=== PATIENT | female | born 1940 | race Caucasian/White ===

== ENCOUNTER → 2016-12-30 | Outpatient (CLI) | payer MEDICARE ==
[~2016-12-30] MED LIST: AMAR4TAB PO; ASPI81 PO; ATOR40TA PO; BUME1TAB PO; CLOP75 PO; ISOS30TA3 PO; KLOR20TA6 PO; LOSA25TA31 PO; MELA5CAP2 PO; METO50TA PO
[2016-12-30 11:19] LABS: BLOOD GAS BASE EXCESS -0.6 mmol/L (-2-2); BLOOD GAS CARBOXYHEMOGLOBIN 1.7 % (0-4); BLOOD GAS HCO3 24 mmol/L (22-26); BLOOD GAS METHEMOGLOBIN 0.8 % (0-2); BLOOD GAS O2 HGB SATURATION 94 % (90-100); BLOOD GAS OXYGEN CONTENT 16.9 Vol % (12.0-20.0); BLOOD GAS PCO2 41 mmHg (38-42); BLOOD GAS PO2 85 mmHg (61-120); BLOOD GAS TOTAL HGB 12.8 G/DL (12.0-16.0); CRITICAL VALUE NO; TEMP CORR TO 98.6
[2016-12-30 11:20] LABS: DRAW SITE RT RADIAL; FIO2 21 %; NUMBER OF ARTERIAL PUNCTURES 1; STAT NO; ULNAR PULSE PRESENT
--- NOTE | 2017-01-02 10:52 | RSPPFT ---
DATE OF PROCEDURE: 12/30/16 COMMENTS: Spirometry shows FVC of 1.7 at 66% of predicted, FEV1 of 1.2 at 67%, FEV1/FVC ratio is decreased. Flow is decreased at FEF 25, FEF 50 and FEF 25-75. There is a good response after bronchodilator treatment. Lung volumes show residual volume is increased. TLC is normal. Diffusion capacity is mildly decreased. Flow volume loop indicates an obstructive pattern. Room air arterial blood gases show pH of 7.38, PCO2 of 41, PO2 of 85, BiCarb of 24 and O2 Saturation at 94%. IMPRESSION: 1. Mild obstructive lung disease. 2. Good response after bronchodilator treatment. 3. Lung volumes show hyperinflation. 4. Mild decrease in diffusion capacity. 5. Blood gases show normal oxygenation. 6. No significant de-saturation after 6-minute walk test.
== END ==
LOC: HRSP 09:21
PROVIDERS: ATTEND Specialist
DX: R06.00 Dyspnea, unspecified (principal); I27.0 Primary pulmonary hypertension
CPT/HCPCS: 36600; 82805; 94060; 94620; 94726; 94729

== ENCOUNTER 2017-10-16 06:04 | Day surgery (SDC) | payer MEDICARE ==
[~2017-10-16] VITALS: Ht 160 cm; Wt 90.4 kg
[2017-10-16] MEDS ORDERED: IOHEXOL 350 MG/ML 50 ML BTL (for Cath Lab) OTHER ONE (06:05)
[2017-10-16] MEDS ORDERED: NS 1000P @30 MLS/HR (KVO) IV SCH (06:45)
[2017-10-16] MEDS ORDERED: LOSA25TA PO (06:59)
[2017-10-16] MEDS ORDERED: GLIM4TAB PO (06:59)
[2017-10-16] MEDS ORDERED: MECL-62 PO (06:59)
[2017-10-16] MEDS ORDERED: CHOL10008 (06:59)
[2017-10-16] MEDS ORDERED: FLAX10002 (06:59)
[2017-10-16] MEDS ORDERED: OMEGCAP PO (06:59)
[2017-10-16] MEDS ORDERED: VITATAB11 (06:59)
[2017-10-16] MEDS ORDERED: ASPI81CH6 CHEW (06:59)
[2017-10-16] MEDS ORDERED: ISOS30TA3 PO (06:59)
[2017-10-16] MEDS ORDERED: BAYETES (06:59)
[2017-10-16] MEDS ORDERED: LACTCAP8 PO (06:59)
[2017-10-16] MEDS ORDERED: NITR1SUB3 SL (06:59)
[2017-10-16] MEDS ORDERED: POTA-163 PO (06:59)
[2017-10-16] MEDS ORDERED: ATOR40TA16 PO (06:59)
[2017-10-16] MEDS ORDERED: METO100T PO (06:59)
[2017-10-16] MEDS ORDERED: BUME1TAB PO (06:59)
[2017-10-16] MEDS ORDERED: COEN400C (06:59)
[2017-10-16] MEDS ORDERED: COCO1000 (06:59)
[2017-10-16 07:02] VITALS: BP 146/70; PULSE 95; RESP 16; TEMP 98.1; O2SAT 98
[2017-10-16] MEDS ORDERED: HEPARIN SODIUM - IV 10,000 UNITS/10 ML VIAL ONE (08:11)
[2017-10-16] MEDS ORDERED: MIDAZOLAM HCL 2 MG/2 ML VIAL ONE (08:30)
--- NOTE | 2017-10-16 08:51 | CATHPROC ---
[facility] HIS Report Study Information Study Number Admission Scheduled Start Study Start [id number] Oct 16 2017 6:04AM 10/16/2017 Oct 16 2017 8:05AM [place] Service Cardiac Catheterization Admit Source Facility Department Other [facility] - Sausage Mixer Physician and Clinical Staff Initial MD Killian, Williams Sales Representative Groceries Pérez RN, Michael Recorder Lakeshia Carrero,RT(R) Scrub Lan Perkins,SASH INSTALLER(BS) X-Ray Rosa Valle ,RT(R) Procedures Performed Procedure Location (Site) Vessel Name Coronary Angiograms LCA Left Coronary Coronary Angiograms RCA Right Coronary Coronary Angiograms JONAS-LAD Left Coronary Coronary Angiograms SVG-DIAG Left Coronary Coronary Angiograms SVG-OM CIRC Coronary Angiograms Gft. Stump 1 SVG Graft L Heart Cath Wire insertion Fem Art (right) Femoral Art Equipment Time Sequencing Machine Operator Description Size Mfg Part Number Used/Scraped TRANSDUCER, TRUWAVE [id number] 08:32 STOCKTON GARNICA * Used W/STOCKCOCK *[id number] *[id number] *[id number] 08:40 DAIG/ST. JOLENE MEDICAL ANGIOSEAL, FR6 VIP FR 6 Used *[id number] 08:32 MEDLINE INDUSTRIES PACK, CCL CUSTOM * Used *[id number] 08:32 Ropatec PACER PEN, SKIN DUAL W/ RULER * Used *[id number] 08:32 Scandit MEDICAL SHEATH, FR6.5 PRELUDE 11CM FR 6.5 038ACT Used *[id number] 08:32 Scandit MEDICAL WIRE, 3MMJ .035 180CM 180CM Used *[id number] 08:32 NAMIC MANIFOLD, 4 PORT * Used *[id number] 08:32 NYCOMED OMNIPAQUE, 350 MG, 100ML 100ML [id number] Used [id number] 08:32 [employer] MEDICAL BLANKET,WARM AIR CCL * Used *[id number] History: Current Medications Medication Dosage/Unit Route Frequency Last Date/Time Taken ASA Beta Carlos Statins (any) Imdur History: Allergies Allergy Reaction potassium iodide sodium iodide iodine povidone-iodine shellfish derived puritis History: Risk Factors Family History of Hypertension Dyslipidemia Previous [place] Previous Heart Failure Premature CAD Yes Yes No Yes No Prior Valve Prior PCI Prior PCIDate Prior CABG Prior CABGDate Surgery No Yes 09/05/2014 Yes 09/04/2000 Cerebrovascular 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 Diabetes Diabetes Therapy Disease Disease Disease No No No No Yes Oral History: Stress Tests Stress or Imaging Studies Performed No History: Other Current Smoker No Labs Glucose (mg/dl) Creatinine (mg/dl) 74.00-106.00 0.50-1.30 185 1.3 Na (meq/l) K (meq/l) 136.00-145.00 3.50-5.10 141 5 PT (sec) INR (PTT:PT) 9.80-11.60 0.90-1.10 11 1 CPK-MB (ng/ML) 0.50-3.60 Not Drawn Medication Medication Total Dose (Bolus/Oral) Medication Total Dosage/Unit 1% XYLOCAINE 20 mL VERSED 2 mg Medications (Bolus/Oral) Medication Time Given Dosage/Unit Administered By Reason 1% XYLOCAINE 10/16/2017 8:28:19 AM 20 mL Williams Killian 20 mL 1% XYLOCAINE given in lab by Williams Killian in Right Groin via Subcutaneous. VERSED 10/16/2017 8:30:33 AM 2 mg Michael Ortez RN 2 mg VERSED given in lab by Michael Ortez RN via Peripheral IV. Medication (Drip) Medication Time Given Dosage/Unit Concentration/Unit Diluent (ml) Solution IV Solutions 10/16/2017 8:11:43 AM 0 mL (IV) 500 NaCl .9 Patient arrived on IV Solutions in Left Antecubital via Peripheral IV. Pump/Drip Flow = 20 ml/hr usin g NaCl .9. kvo Initial Case Assessment Cardiovascular HR Rhythm NIBP Chest Pain 62 reg 165/88 0 Edema Present Skin color Skin None Normal Warm Circulatory - Right Pulses Dorsalis Pedis Femoral 3 3 Scale (0,1,2,3,4,d) Circulatory - Left Pulses Dorsalis Pedis Femoral 3 3 Scale (0,1,2,3,4,d) Circulatory - Lower Extremities Color Lower Right Color Lower Left Normal Normal Neurological State Oriented to time-place- Alert Moves all extremities person Respiration - General Respiration Rate SpO2 (%) (B/min) 20 95 Final Case Assessment Cardiovascular HR Rhythm NIBP 50 reg 144/79 Edema Present Skin color Skin None Normal Warm Circulatory - Right Pulses Dorsalis Pedis Femoral 2 2 Scale (0,1,2,3,4,d) Circulatory - Left Pulses Dorsalis Pedis Femoral 2 2 Scale (0,1,2,3,4,d) Circulatory - Lower Extremities Color Lower Right Color Lower Left Normal Normal Neurological State Oriented to time-place- Alert Moves all extremities person Respiration - General Respiration Rate SpO2 (%) (B/min) 19 97 Chronological Log Time Study Chronological Log 8:05:40 Patient arrived via Bed. 8:05:41 Patient Name, D.O.B, / Armband Verified By R.N. 8:05:42 Consent signed by the physician and the patient and verified by the Sausage [employer] staff. 8:05:45 Pre-op and post- op instructions given; patient acknowledges understanding of instructions. 8:05:46 Verbal Stimulation=2 Physical Stimulation=2 Airway=2 Respiration=2 TOTAL=8. (0=absent, 1=li mited, 2=present) 8:08:49 Patient has been NPO for More than 6Hrs. 8:08:51 Skin Breakdown-none Vitals capture started with the following parameters, Patient=Adult, Interval=5 min, Initial Pr jqncel=672 mmHg, 8:09:33 Deflation Rate=5 mmHg, Cuff placed on Left Arm Vitals capture started with the following parameters, Patient=Adult, Interval=5 min, Initial Pr sywvxm=369 mmHg, 8:11:04 Deflation Rate=5 mmHg, Cuff placed on Left Arm 8:11:37 A # 20 IV was noted in the Antecubital (left). Grade = 0 8:11:43 Patient arrived on IV Solutions in Left Antecubital via Peripheral IV. Pump/Drip Flow = 20 ml/hr using NaCl .9. kvo 8:12:12 History and physical on the chart or being dictated. Assessment: Initial Case, HR=62 BPM, Rhythm=reg, WTOX=268/88 mmhg, Chest Pain=0, Edema=None, Col or=Normal, Skin = Warm Right Pulses: Jacob Ped=3, Femoral=3 Left Pulses: Jacob Ped=3, Femoral=3 8:12:15 Lower Right Extremities: Color=Normal Lower Left Extremities: Color=Normal Neurological: State=Alert, Ox3, PARADA Respiration: Resp=20 B/min, SpO2=95 % 8:12:19 HR=57 bpm, HKIQ=164/88 mmhg, SpO2=95.0 %, Resp=13 B/min, Pain=0, Antoni=10, Randle=2 8:13:33 Bilateral groins prepped with 2% chlorhexidine, and draped after a 3 minute waiting time. 8:13:39 Reference ECG taken 8:13:44 MD paged 8:17:36 HR=59 bpm, FBVQ=220/82 mmhg, SpO2=93.0 %, Resp=31 B/min, Pain=0, Antoni=10, Randle=2 8:20:05 Pressure channel 1 zeroed. 8:20:20 MD arrived. 8:21:48 HR=48 bpm, NFXN=466/75 mmhg, SpO2=94 %, Resp=17 B/min, Pain=0, Antoni=10, Randle=2 8:26:51 HR=55 bpm, RHTZ=773/71 mmhg, SpO2=91.0 %, Resp=19 B/min, Pain=0, Antoni=10, Randle=2 Time Out. Correct patient, correct procedure, correct physician, power injector not loaded with contrast with surgical 8:27:56 team present. Time Out Concurred by MD and individual staff in procedure. 8:28:06 Case Start 8:28:08 Verbal Stimulation=2 Physical Stimulation=2 Airway=2 Respiration=2 TOTAL=8. (0=absent, 1=mack ited, 2=present) 8:28:19 20 mL 1% XYLOCAINE given in lab by Williams Killian in Right Groin via Subcutaneous. 8:30:33 2 mg VERSED given in lab by Michael Ortez RN via Peripheral IV. 8:31:42 Access site was Right Femoral Artery. 8:31:48 A wire was inserted via Fem Art (right). 8:31:50 HR=52 bpm, JSGM=522/79 mmhg, SpO2=91.0 %, Resp=19 B/min, Pain=0, Antoni=10, Randle=2 8:31:50 A SHEATH, FR6.5 PRELUDE 11CM FR 6.5 was advanced into the Fem Art (right) using the Percutan eous technique. A JL 4.0 GUIDE CATHETER FR 6 was advanced over a wire. OMNIPAQUE, 350 MG, 100ML 100ML was used f or 8:33:02 injections. Recorded Pressure: Ao, HR=57, Condition=Condition 1 8:33:45 (Aorta) Ao 140/57/87 8:34:26 The LCA was injected and visualized at various angles. OMNIPAQUE, 350 MG, 100ML 100ML used. After removing the current catheter a JR 4.0 GUIDE CATHETER FR 6 was advanced over a WIRE, 3MMJ .035 180CM 8:35:39 180CM. 8:36:06 The RCA was injected and visualized at various angles. OMNIPAQUE, 350 MG, 100ML 100ML used. 8:36:21 The SVG-OM was injected and visualized at various angles. OMNIPAQUE, 350 MG, 100ML 100ML use d. 8:36:47 HR=52 bpm, EXOG=016/79 mmhg, SpO2=97.0 %, Resp=18 B/min, Pain=0, Antoni=10, Randle=2 8:37:09 The SVG-DIAG was injected and visualized at various angles. OMNIPAQUE, 350 MG, 100ML 100ML u sed. 8:37:58 The Gft. Stump 1 was injected and visualized at various angles. OMNIPAQUE, 350 MG, 100ML 100 ML used. 8:38:46 The JONAS-LAD was injected and visualized at various angles. OMNIPAQUE, 350 MG, 100ML 100ML u sed. 8:39:31 An injection in the Fem Art (right) was made through the SHEATH, FR6.5 PRELUDE 11CM FR 6.5. Assessment: Final Case, HR=50 BPM, Rhythm=reg, DKPY=144/79 mmhg, Edema=None, Color=Normal, Skin = Warm Right Pulses: Jacob Ped=2, Femoral=2 Left Pulses: Jacob Ped=2, Femoral=2 8:39:42 Lower Right Extremities: Color=Normal Lower Left Extremities: Color=Normal Neurological: State=Alert, Ox3, PARADA Respiration: Resp=19 B/min, SpO2=97 % 8:40:15 Catheter(s) removed without difficulty 8:40:18 ANGIOSEAL, FR6 VIP FR 6 placement in the Fem Art (right) 8:40:51 Sterile dressing applied to site 8:40:53 No case complications noted. 8:40:54 Cine recording checked. 8:40:55 Bedside Report will be given. 8:41:00 Contrast Scanned 8:41:03 Verbal Stimulation=2 Physical Stimulation=2 Airway=2 Respiration=2 TOTAL=8. (0=absent, 1=l imited, 2=present) 8:41:17 A Left Heart Cath was performed. 8:41:19 Clinical correlaton risk stratification. 8:41:46 HR=51 bpm, LKRN=121/79 mmhg, SpO2=97.0 %, Resp=21 B/min, Pain=0, Antoni=10, Randle=2 8:41:56 Case End 8:46:18 Patient moved to stretcher 8:46:45 HR=45 bpm, TJIB=428/71 mmhg, SpO2=98.0 %, Resp=11 B/min, Pain=0, Antoni=10, Randle=2 8:48:55 Vitals capture stopped. 8:49:11 Sterile dressing applied to site 8:49:12 No case complications noted. 8:49:21 A Left Heart Cath was performed. End Study - Contrast Media Used In Study Contrast Total Opened (mL) Total Used (mL) Total Wasted (mL) Omnipaque 40 40 0 End Study - Maximum Contrast Load Max Contrast Load (mL) 347.7 End Study - Radiation Exposure Fluoro Time (minutes) 1.8 End Study - Sheaths Sheaths Pulled By Sheath Hold Time (min) Williams Killian End Study - Patient Disposition Complications Transferred To No Outpatient Bed
[2017-10-16] MEDS ORDERED: MISC INFORMATION XX ONE (09:00)
--- NOTE | 2017-10-16 09:38 | MA ---
cc: WILLIAMS KILLIAN MD DATE: 10/16/2017 PROCEDURE The patient was prepped and draped in the usual fashion. A six sheath was inserted percutaneously in the right femoral artery. Coronary angiography was done with Jade preformed catheters. Coronary grafts were also visualized with the right coronary catheter. RESULTS Aortic pressure was 130/70. Coronary angiography revealed the left main coronary was normal. The left anterior descending artery was totally occluded just after the takeoff of the first septal business machine mechanic branch. A tiny diagonal branch was also given off which showed no significant stenoses. Collateralization of the distal right coronary was seen through septal business machine mechanic branches. Her annuloplasty and valve were also present and on fluoroscopy valve appeared to be functioning well. 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 A saphenous vein graft to the circumflex was widely patent, an intraluminal stent was present which demonstrated no significant stenoses. Also collateralization to the distal right was seen through this vessel. A saphenous vein graft to the first diagonal branch was also widely patent with no significant stenoses noted. A vein graft presumably to the right coronary artery was totally occluded. Internal mammary artery graft was patent throughout its course. CONCLUSION The patient demonstrates patent grafts as described above. Medical management will be continued. Williams Killian MD DLW/TLL /8:52 AM /9:08 AM
--- NOTE | 2017-10-16 11:52 | EKG ---
Date Performed: 10/16/2017 Time Performed: 07:23:56 PTAGE: 77 years EKG: Atrial fibrillation. Septal and lateral ST-T changes are nonspecific Compared to previous t racing the rate is slower, nonspecific ST segment changes have resolved Abnormal ECG PREVIOUS TRACING : 03/17/09 DOCTOR: Williams Killian Interpretating Date/Time 10/16/2017 11:50:55
== END 2017-10-16 11:17 | disposition home or self-care (01) ==
LOC: HDOC 06:04 → HDIC 06:05 → HDOC 11:17
PROVIDERS: ATTEND Internal Medicine Cardiovascular Disease
DX: I25.119 Atherosclerotic heart disease of native coronary artery with unspecified angina pectoris (principal); I13.0 Hypertensive heart and chronic kidney disease with heart failure and stage 1 through stage 4 chronic kidney disease, or unspecified chronic kidney disease; I50.9 Heart failure, unspecified; E11.22 Type 2 diabetes mellitus with diabetic chronic kidney disease; N18.3 Chronic kidney disease, stage 3 (moderate); I25.2 Old myocardial infarction; E78.5 Hyperlipidemia, unspecified; I70.0 Atherosclerosis of aorta; I65.29 Occlusion and stenosis of unspecified carotid artery; Z95.1 Presence of aortocoronary bypass graft; G47.33 Obstructive sleep apnea (adult) (pediatric); M85.80 Other specified disorders of bone density and structure, unspecified site; I48.0 Paroxysmal atrial fibrillation; I27.20 Pulmonary hypertension, unspecified; E55.9 Vitamin D deficiency, unspecified; R42 Dizziness and giddiness; D69.6 Thrombocytopenia, unspecified
CPT/HCPCS: 93005; 93454; 99152; C1760; C1769; C1893; G0269; J1644; J2250; C1725; C1753; C1874; C1887; Q9967

== ENCOUNTER 2017-11-06 06:05 | Day surgery (SDC) | payer MEDICARE ==
[~2017-11-06 06:05] MED LIST changes: -AMAR4TAB PO; -ASPI81 PO; +ASPI81CH6 CHEW; -ATOR40TA PO; +ATOR40TA16 PO; +BAYETES; +CHOL10008; -CLOP75 PO; +COCO1000; +COEN400C; +FLAX10002; +GLIM4TAB PO; -KLOR20TA6 PO; +LACTCAP8 PO; +LOSA25TA PO; -LOSA25TA31 PO; +MECL-62 PO; -MELA5CAP2 PO; +METO100T PO; -METO50TA PO; +NITR1SUB3 SL; +OMEGCAP PO; +POTA-163 PO; +VITATAB11
[2017-11-06] MEDS ORDERED: DILT120C50 PO (06:47)
[2017-11-06] MEDS ORDERED: HYDR-3799 PO (06:47)
[2017-11-06 06:51] VITALS: BP 170/79; PULSE 100; RESP 18; TEMP 98.3; O2SAT 100
[2017-11-06] MEDS ORDERED: ALPRAZolam 0.25 MG TAB PO ONE (07:15)
[2017-11-06] MEDS ORDERED: HEPARIN-NS/PF FLUSH BAG 1,000 ML IV FLUSH ONE (08:18)
--- NOTE | 2017-11-06 08:58 | CATHPROC ---
[employer] HIS Report Study Information Study Number Admission Scheduled Start Study Start [id number] Nov 06 2017 6:05AM 11/06/2017 Nov 06 2017 8:14AM [place] Service Cardiac Catheterization Admit Source Facility Department Other [facility] - Medical Records Custodian Physician and Clinical Staff Initial Williams Mullen Loom StarterGregg Bergman RN Loom Starter Stan Ferguson RN Other cathlab, cathlab Recorder Lan Perkins RCIS(BS) ScrOdalis Stahl RT(R) (BS) Procedures Performed Procedure R Heart Cath Equipment Time Pelt Shearer Description Size Mfg Part Number Used/Scraped [id number] 08:19 STOCKTON GARNICA SWAN MIGUEL CATHETER FR 7 Used *[id number] TRANSDUCER, TRUWAVE [id number] 08:19 STOCKTON GARNICA * Used W/STOCKCOCK *[id number] 08:19 MEDLINE INDUSTRIES PACK, CCL CUSTOM * Used *[id number] 08:19 Nimbic (formerly [employer]) PACER PEN, SKIN DUAL W/ RULER * Used *[id number] 08:19 NAMIC MANIFOLD, 4 PORT * Used *[id number] 08:19 NICE MEDICAL BLANKET,WARM AIR CCL * Used *[id number] 08:19 TERUMO MEDICAL SHEATH, FR7 TERUMO (10CM) FR 7 Used *[id number] History: Current Medications Medication Dosage/Unit Route Frequency Last Date/Time Taken ASA Beta Carlos Statins (any) Imdur History: Allergies Allergy Reaction potassium iodide sodium iodide iodine povidone-iodine shellfish derived puritis History: Risk Factors Family History of Hypertension Dyslipidemia Previous [place] Previous Heart Failure Premature CAD Yes Yes No Yes No Prior Valve Prior PCI Prior PCIDate Prior CABG Prior CABGDate Surgery No Yes 09/05/2014 Yes 01/03/2008 Cerebrovascular 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 Diabetes Diabetes Therapy Disease Disease Disease No No No No Yes Oral History: Symptoms/Diagnosis Selection Items SOB History: Stress Tests Stress or Imaging Studies Performed No History: ND/CV Data Previous Cath Date Previous CABG Date 09/05/2014 01/03/2008 History: Other Current Smoker No Labs Hgb (g/dl) Hct (%) WBC (l/cumm) Platelets (thousands) 11.60-17.00 35.00-51.00 4.00-11.00 150.00-450.00 14.4 42.4 9.1 198 Glucose (mg/dl) BUN (mg/dl) Creatinine (mg/dl) BUN:Creatinine (1:x) 74.00-106.00 7.00-18.00 0.50-1.30 10.00-20.00 140 27 1.1 24.5 Na (meq/l) K (meq/l) 136.00-145.00 3.50-5.10 145 4.3 INR (PTT:PT) 0.90-1.10 1 CPK-MB (ng/ML) 0.50-3.60 Not Drawn Medication Medication Total Dose (Bolus/Oral) Medication Total Dosage/Unit 1% XYLOCAINE 20 mL Medications (Bolus/Oral) Medication Time Given Dosage/Unit Administered By Reason 1% XYLOCAINE 11/06/2017 8:28:06 AM 20 mL Williams Killian 20 mL 1% XYLOCAINE given in lab by Williams Killian in Right Groin via Subcutaneous. Medication (Drip) Medication Time Given Dosage/Unit Concentration/Unit Diluent (ml) Solution IV Solutions 11/06/2017 8:14:35 AM 0 mL (IV) 500 NaCl .9 Patient arrived on IV Solutions given by cathlab cathoctavio in Right Forearm via Peripheral IV. Pump/Dr ip Flow = 20 ml/hr using NaCl .9. Ordered by Williams Killian. Initial Case Assessment Cardiovascular HR Rhythm NIBP Chest Pain 86 nsr 148/78 0 Edema Present Skin color Skin None Normal Warm Dry Circulatory - Right Pulses Dorsalis Pedis Femoral 2 2 Scale (0,1,2,3,4,d) Circulatory - Left Pulses Dorsalis Pedis Femoral 2 2 Scale (0,1,2,3,4,d) Neurological State Oriented to time-place- Alert Moves all extremities person Respiration - General Respiration Rate SpO2 (%) (B/min) 15 95 Final Case Assessment Cardiovascular HR Rhythm NIBP Chest Pain 93 nsr 139/80 0 Edema Present Skin color Skin None Normal Warm Dry Circulatory - Right Pulses Dorsalis Pedis Femoral 2 2 Scale (0,1,2,3,4,d) Circulatory - Left Pulses Dorsalis Pedis Femoral 2 2 Scale (0,1,2,3,4,d) Neurological State Oriented to time-place- Alert Moves all extremities person Respiration - General Respiration Rate SpO2 (%) (B/min) 15 95 Chronological Log Time Study Chronological Log 8:14:12 Patient arrived via Bed. 8:14:14 Patient Name, D.O.B, / Armband Verified By R.N. 8:14:14 Consent signed by the physician and the patient and verified by the Medical Records Custodian staff. 8:14:15 Verbal Stimulation=2 Physical Stimulation=2 Airway=2 Respiration=2 TOTAL=8. (0=absent, 1=li mited, 2=present) 8:14:15 Pre-op and post- op instructions given; patient acknowledges understanding of instructions. 8:14:29 Presedation assessment performed by Medical Records Custodian RN. 8:14:30 Immediate Presedation assesment performed by physician. 8:14:31 Patient has been NPO for More than 6Hrs. 8:14:31 Skin Breakdown- none per patient 8:14:32 Patient Warmer Placed on the Table. 8:14:33 Peg Prominences Protected 8:14:35 A # 20 IV was noted in the Forearm (right). Grade = 0 Patient arrived on IV Solutions given by cathlabcaitlyn in Right Forearm via Peripheral IV. P ump/Drip Flow = 20 ml/hr 8:14:35 using NaCl .9. Ordered by Williams Killian. 8:14:36 History and physical on the chart or being dictated. 8:15:49 MD arrived. Vitals capture started with the following parameters, Patient=Adult, Interval=5 min, Initial Pr xefgck=263 mmHg, 8:16:14 Deflation Rate=5 mmHg, Cuff placed on Right Ankle Assessment: Initial Case, HR=86 BPM, Rhythm=nsr, LQUA=929/78 mmhg, Chest Pain=0, Edema=None, Col or=Normal, Skin = Warm, Dry Right Pulses: Jacob Ped=2, Femoral=2 8:19:04 Left Pulses: Jacob Ped=2, Femoral=2 Neurological: State=Alert, Ox3, PARADA Respiration: Resp=15 B/min, SpO2=95 % Vitals capture started with the following parameters, Patient=Adult, Interval=5 min, Initial Pre lvnpi=983 mmHg, 8:19:29 Deflation Rate=5 mmHg, Cuff placed on Right Ankle 8:19:59 Reference ECG taken 8:20:07 RO=354 bpm, FDTA=879/89 mmhg, SpO2=94.0 %, Resp=16 B/min, Pain=0, Antoni=10, Randle=2 8:22:44 Bilateral groins prepped with 2% chlorhexidine, and draped after a 3 minute waiting time. 8:23:00 Immediate Presedation assesment performed by physician. 8:25:10 HR=84 bpm, JAOA=962/88 mmhg, SpO2=93.0 %, Resp=17 B/min, Pain=0, Antoni=10, Randle=2 8:26:51 Pressure channel 1 zeroed. Time Out. Correct patient, correct procedure, correct physician, power injector not loaded with contrast with surgical 8:27:56 team present. Time Out Concurred by MD and individual staff in procedure. 8:28:01 Case Start 8:28:02 Verbal Stimulation=2 Physical Stimulation=2 Airway=2 Respiration=2 TOTAL=8. (0=absent, 1=mack ited, 2=present) 8:28:06 20 mL 1% XYLOCAINE given in lab by Williams Killian in Right Groin via Subcutaneous. 8:30:09 HR=96 bpm, DHPC=103/86 mmhg, SpO2=93.0 %, Resp=18 B/min, Pain=0, Antoni=10, Randle=2 8:35:10 HR=95 bpm, DWRB=793/78 mmhg, SpO2=95.0 %, Resp=21 B/min, Pain=0, Antoni=10, Randle=2 8:36:40 Access site was Right Femoral Vein. 8:36:44 A SHEATH, FR7 TERUMO (10CM) FR 7 was advanced into the Fem Vein (right) using the Percutaneo us technique. 8:37:24 A sheath was advanced into the Fem Vein (right) using the ~TECHNIQUE~ technique. 8:37:26 A SWAN MIGUEL CATHETER FR 7 was inserted via Fem Vein (right) Recorded Pressure: RA, HR=95, Condition=Condition 1 8:39:03 (Right Atrium) RA 18/15/12 8:40:07 HR=94 bpm, RWDP=813/90 mmhg, SpO2=94.0 %, Resp=18 B/min, Pain=0, Antoni=10, Randle=2 8:40:09 Saturation: Site=RA (Right Atrium) , O2=76.1 %, Hgb=14.4 gm/dl, Condition=Condition 1. Used in calculation. Recorded Pressure: RV, HR=95, Condition=Condition 1 8:41:28 (Right Ventricle) RV 63/6/8 8:42:05 Saturation: Site=RV (Right Ventricle) , O2=77.1 %, Hgb=14.4 gm/dl, Condition=Condition 1. Us ed in calculation. Recorded Pressure: MPA, HR=95, Condition=Condition 1 8:44:48 (Main Pulmonary Artery) MPA 52/22/35 8:45:01 Saturation: Site=PA (Pulmonary Artery) , O2=75.3 %, Hgb=14.4 gm/dl, Condition=Condition 1. U sed in calculation. 8:45:10 HR=85 bpm, VLRG=610/76 mmhg, SpO2=93.0 %, Resp=18 B/min, Pain=0, Antoni=10, Randle=2 Recorded Pressure: PCW, HR=95, Condition=Condition 1 8:47:42 (Pulmonary Capillary Wedge) PCW 35/35/26 Thermo CO: CO=5.3 l/m, HR=94 bpm, Condition=Condition 1. Used in calculation. 8:48:51 Equipment: Description and Size=SWAN MIGUEL CATHETER FR 7, Type=Bath Probe, CC=0.579 Injectant: Temp=19.0 - 22.0 Celsius, Volume=10.0 ml Thermo CO: CO=5.0 l/m, HR=93 bpm, Condition=Condition 1. Used in calculation. 8:49:44 Equipment: Description and Size=SWAN MIGUEL CATHETER FR 7, Type=Bath Probe, CC=0.579 Injectant: Temp=19.0 - 22.0 Celsius, Volume=10.0 ml 8:50:09 HR=90 bpm, ITUD=739/80 mmhg, SpO2=92.0 %, Resp=18 B/min, Pain=0, Antoni=10, Randle=2 Thermo CO: CO=5.2 l/m, HR=94 bpm, Condition=Condition 1. Used in calculation. 8:50:18 Equipment: Description and Size=SWAN MIGUEL CATHETER FR 7, Type=Bath Probe, CC=0.579 Injectant: Temp=19.0 - 22.0 Celsius, Volume=10.0 ml Thermo CO: CO=6.3 l/m, HR=83 bpm, Condition=Condition 1. Used in calculation. 8:50:57 Equipment: Description and Size=SWAN MIGUEL CATHETER FR 7, Type=Bath Probe, CC=0.579 Injectant: Temp=19.0 - 22.0 Celsius, Volume=10.0 ml Thermo CO: CO=5.8 l/m, HR=84 bpm, Condition=Condition 1. Used in calculation. 8:51:32 Equipment: Description and Size=SWAN MIGUEL CATHETER FR 7, Type=Bath Probe, CC=0.579 Injectant: Temp=19.0 - 22.0 Celsius, Volume=10.0 ml Thermo CO: CO=5.4 l/m, HR=82 bpm, Condition=Condition 1. Used in calculation. 8:51:58 Equipment: Description and Size=SWAN MIGUEL CATHETER FR 7, Type=Bath Probe, CC=0.579 Injectant: Temp=19.0 - 22.0 Celsius, Volume=10.0 ml 8:52:47 [place] Miguel Catheter Removed 8:52:50 Case End Assessment: Final Case, HR=93 BPM, Rhythm=nsr, NLKA=383/80 mmhg, Chest Pain=0, Edema=None, Col or=Normal, Skin = Warm, Dry Right Pulses: Jacob Ped=2, Femoral=2 8:52:56 Left Pulses: Jacob Ped=2, Femoral=2 Neurological: State=Alert, Ox3, PARADA Respiration: Resp=15 B/min, SpO2=95 % 8:53:14 Sheath(s) left in place, will be removed in Holding Area 8:53:16 Sterile dressing applied to site 8:53:17 No case complications noted. 8:53:17 Cine recording checked. 8:53:19 Bedside Report will be given. 8:53:21 Verbal Stimulation=2 Physical Stimulation=2 Airway=2 Respiration=2 TOTAL=8. (0=absent, 1=l imited, 2=present) 8:53:35 A Right Heart Cath was performed. 8:55:06 HR=88 bpm, IPFR=694/86 mmhg, SpO2=92.0 %, Resp=18 B/min, Pain=0, Antoni=10, Randle=2 8:58:02 Vitals capture stopped. 8:58:03 Patient moved to stretcher End Study - Contrast Media Used In Study Contrast Total Opened (mL) Total Used (mL) Total Wasted (mL) Unspecified 0 0 0 End Study - Maximum Contrast Load Max Contrast Load (mL) 411.0 End Study - Radiation Exposure Fluoro Time (minutes) 2.6 End Study - Patient Disposition Complications Transferred To Interventional Outcome No Medical Records Custodian Holding No attempt made
[2017-11-06] MEDS ORDERED: MISC INFORMATION XX ONE (09:00)
--- NOTE | 2017-11-06 09:25 | MA ---
cc: Williams Killian MD 11/06/2017 Right heart cath. Patient was prepped and draped and usual fashion. A 6 Turkish sheath was inserted percutaneously into the right femoral vein. Right heart catheterization was done with flow-directed catheter. RESULTS: RA pressure was 6 with saturation of 77%. RV pressure was 63/5. PA pressure was 53/5 with a wedge pressure of 20. No step up in saturations were noted. CONCLUSIONS: Moderate pulmonary hypertension with no evidence for intraatrial or intraventricular shunting. MD NUZHAT Alcantar/VASU , 09:01 AM , 09:24 AM
== END 2017-11-06 11:39 | disposition home or self-care (01) ==
LOC: HDOC 06:05 → HDIC 06:06 → HDOC 11:39
PROVIDERS: ATTEND Internal Medicine Cardiovascular Disease
DX: I27.20 Pulmonary hypertension, unspecified (principal); I25.10 Atherosclerotic heart disease of native coronary artery without angina pectoris; I13.0 Hypertensive heart and chronic kidney disease with heart failure and stage 1 through stage 4 chronic kidney disease, or unspecified chronic kidney disease; I50.9 Heart failure, unspecified; N18.3 Chronic kidney disease, stage 3 (moderate); E11.9 Type 2 diabetes mellitus without complications; E78.5 Hyperlipidemia, unspecified; Z95.1 Presence of aortocoronary bypass graft
CPT/HCPCS: 82810; 93451; C1769; C1893; J1644